=== PATIENT | male | born 1995 | race Caucasian/White ===

== ENCOUNTER 2021-06-07 08:50 | Emergency (ER) | payer OTHER ==
[~2021-06-07] VITALS: Ht 175.3 cm; Wt 88.2 kg
[2021-06-07 09:22] LABS: COVID AG,FIA SOURCE NASAL SWAB
[2021-06-07 10:40] VITALS: BP 126/84
== END 2021-06-07 11:19 ==
LOC: EMS 08:53
DX: J06.9 Acute upper respiratory infection, unspecified (principal); F17.210 Nicotine dependence, cigarettes, uncomplicated; Z20.822 Contact with and (suspected) exposure to COVID-19
CPT/HCPCS: 71046; 99284